=== PATIENT | female | born 1995 | race African-American/Black ===

== ENCOUNTER 2025-01-24 10:43 | Outpatient (REF) | payer MEDICAID, SELFPAY ==
[2025-01-24 11:51] LABS: Estimated Average Glucose 105 mg/dL; Hemoglobin A1c % 5.3 % (<6.0)
--- OUTSIDE RECORDS SUMMARY | 2025-01-24 11:51 | XMS_ITS | Encounter Summary ---
Author Organization [employer] Address [address] [facility] [address] [place] [address] Care Team Providers Care Paralegal Legal Secretary Name Role Phone Bria Mehta [facility] Primary Care Provider [phone] Reason for Visit * Reason Comments transfer of care Encounter Details Date Type Department Care Team (Late st Contact Info) Description 01/24/2025 9:15 AM EDT Office Visit [facility] [address], [place] [phone] Bria Mehta [facility] [address] [place], [place] [phone] Patient desires (Primary Dx); Class 1 obesity due to excess calories with body mass index (BMI) of 34.0 to 34.9 in adult, unspecified whether serious comorbidity present; Healthcare maintenance Social History Tobacco Use Types Packs/Day Years Used Date Smoking Tobacco: Former Cigarettes 1 13.4 S tarted: 2012 Smokeless Tobacco: Never Alcohol Use Standard Drinks/Week Comments Never 0 (1 standard drink = 0.6 oz pur e alcohol) Depression Answer Date Recorded Patient Health Questionnaire-9 Score 0 01/24/2025 Patient Health Questionnaire-9 Score 0 01/24/2025 Last PHQ-9: Questionnaire Data Not on file 0 01/24/2025 Housing Stability Answer Date Recorded What is your housing situation today? I have mendoza santizo 12/28/[address] you li ve. Do you have problems with any of the following? None of the above 12/28/2024 Food Insecurity Answer Date Recorded Within the past 12 months, y ou worried that your food would run out before you got money to buy more: Never True 12/28/2024 Within the past 12 months,th e food you bought just didn't last and you didn't have enough money to get more: Never True 01/2025 Transportation Answer Date Recorded In the past 12 months, has l ack of transportation kept you from medical appts, meetings, work or from getting things needed for daily living? No 12/28/2024 Utilities Answer Date Recorded In the past 12 months, has t he electric, gas, oil or water company threatened to shut off services in your home? No 12/28/2024 Depression Answer Date Recorded Patient Health Questionnaire-2 Score 0 01/24/2025 Internet Access Answer Date Recorded Internet Access Q1 Yes 12/28/2024 Internet Access Q2 Not on file 12/28/2024 Comments No Sex and Gender Information Value Date Recorded Sex Assigned at Female 12/20/2024 9:34 AM EDT Legal Sex Female 2:03 PM EDT Gender Identity Female 12/27/2024 11:54 AM EDT Sexual Orientation Don't know 12/27/2024 11 :54 AM EDT documented as of this encounter Last Filed Vital Signs Vital Sign Reading Time Taken Comments Blood Pressure 108/78 01/24/2025 9:21 AM EDT Pulse 88 01/24/2025 9:21 AM EDT Temperature 36.8 ??C (98.2 ??F) 01/24/2025 9:21 AM ED T Respiratory Rate 20 01/24/2025 9:21 AM EDT Oxygen Saturation - - Inhaled Oxygen Concentration - - Weight 99.8 kg (220 lb) 01/24/2025 9:21 AM EDT Height 170.2 cm (5' 7 ) 01/24/2025 9:21 AM EDT Body Mass Index 34.46 01/24/2025 9:21 AM EDT documented in this encounter Functional Status * Over the past 2 weeks, how often have you been bothered by any of the following problems? Question Answer Date of Assessment Author Patient Health Questionnaire-2 Score 0 01/24/2025 9:23 AM EDT Dayanna Turner MA * Little interest or pleasure in doing things Answer Date of Assessment Author Not at all 01/24/2025 9:23 AM EDT Dayanna De La Garza MA * Feeling down, depressed, or hopeless Answer Date of Assessment Author Not at all 01/24/2025 9:23 AM EDT Dayanna De La Garza MA * Trouble falling or staying asleep, or sleeping too much Answer Date of Assessment Author Not at all 01/24/2025 9:23 AM Dayanna Lopez MA * Feeling tired or having little energy Answer Date of Assessment Author Not at all 01/24/2025 9:23 AM Dayanna Lopez MA * Poor appetite or overeating Answer Date of Assessment Author Not at all 01/24/2025 9:23 AM Dayanna Lopez MA * Feeling bad about yourself - or that you are a failure or have let yourself or your family down Answer Date of Assessment Author Not at all 01/24/2025 9:23 AM Dayanna Lopez MA * Trouble concentrating on things, such as reading the newspaper or watching television Answer Date of Assessment Author Not at all 01/24/2025 9:23 AM Dayanna Lopez MA * Moving or speaking so slowly that other people could have noticed? Or the opposite - being so fidgety or restless that you have been moving around a lot more than usual. Answer Date of Assessment Author Not at all 01/24/2025 9:23 AM Dayanna Lopez MA * Thoughts that you would be better off or hurting yourself in some way Answer Date of Assessment Author Not at all 01/24/2025 9:23 AM Dayanna Lopez MA * Patient Health Questionnaire-9 Score Answer Date of Assessment Author 0 01/24/2025 9:23 AM Dayanna Lopez MA * Over the last 2 weeks, how often have you been bothered by any of the following problems? Question Answer Date of Assessment Author Feeling nervous, anxious, or on edge 0 01/24/2025 9:23 AM Dayanna Greenberg MA Not being able to stop or control worrying 0 01/24/2025 9:23 AM Dayanna Greenberg MA Worrying too much about different things 0 01/24/2025 9:23 AM Dayanna Greenberg MA Trouble relaxing 0 01/24/2025 9:23 AM EDT Dayanna Burdick MA Being so restless that it is hard to sit still 0 01/24/2025 9:23 AM EDT Dayanna Turner MA Becoming easily annoyed or irritable 0 01/24/2025 9:23 AM EDT Dayanna Turner MA Feeling afraid as if something awful might happen 0 01/24/2025 9:23 AM EDT Dayanna Verduzco MA MEREDITH-7 Total Score 0 01/24/2025 9:23 AM EDT Dayanna Turner MA documented as of this encounter Plan of Treatment Upcoming Encounters Date Type Department Care Team (Late st Contact Info) Description 03/21/2025 2:30 PM EDT Office Visit [facility] [address] [place] [address] [facility] [address] [place] [address] Scheduled Orders Name Type Priority Associated Diagnoses Orde r Schedule Hemoglobin A1c Lab Routine Class 1 obesity due to excess calories with body mass index (BMI) of 34.0 to 34.9 in adult, unspecified whether serious comorbidity present Expected: 01/24/2025 (Approximate), Expires: 01/24/2026 Hepatitis C Antibody with Reflex to HCV, RNA, Quantitative, Real-Time PCR Lab Routine Healthcare maintenance Expected: 01/24/2025 (Approximate), Expires: 01/24/2026 HIV-1/2 Antigen and Antibodies, Fourth Generation, with Reflexes Lab Routine Healthcare maintenance Expected: 01/24/2025 (Approximate), Expires: 01/24/2026 Lipid Panel, Standard Lab Routine Class 1 obesity due to excess calories with body mass index (BMI) of 34.0 to 34.9 in adult, unspecified whether serious comorbidity present Expected: 01/24/2025 (Approximate), Expires: 01/24/2026 Comprehensive Metabolic Panel Lab Routine Class 1 obesity due to excess calories with body mass index (BMI) of 34.0 to 34.9 in adult, unspecified whether serious comorbidity present Expected: 01/24/2025 (Approximate), Expires: 01/24/2026 TSH W/Reflex to FT4 Lab Routine Class 1 obesity due to excess calories with body mass index (BMI) of 34.0 to 34.9 in adult, unspecified whether serious comorbidity present Expected: 01/24/2025 (Approximate), Expires: 01/24/2026 Syphilis Screen Lab Routine Healthcare maintenance Expected: 01/24/2025, Expires: 01/24/2026 documented as of this encounter Visit Diagnoses Diagnosis Patient desires - Primary Class 1 obesity due to excess calories with body mass index (BMI) of 34.0 to 34.9 in adult, unspecified whether serious comorbidity present Healthcare maintenance documented in this encounter Additional Health Concerns Assessment Noted Time PHQ-9 Depression Total Score: 0 01/25/20 9:23 AM EDT documented as of this encounter Care Teams Paralegal Legal Secretary Relationship Specialty Start Date End Date Bria Mehta FNP [address] [place] [id number] PCP - General Family Medicine 12/28/24 documented as of this encounter
[2025-01-24 12:34] LABS: Alanine Aminotransferase 19 U/L (0-31); Albumin Level 4.5 g/dL (3.5-5.0); Alkaline Phosphatase 87 U/L (39-117); Anion Gap 11 (12-20); Aspartate Amino Transferase 20 U/L (5-31); Bilirubin Total 0.2 mg/dL (0.0-1.0); Blood Urea Nitrogen 15 mg/dL (9-16); Calcium 9.2 mg/dL (8.4-10.2); Carbon Dioxide 23 mmol/L (22-29); Chloride 111 mmol/L (96-108); Cholesterol 246 mg/dL (<200); Estimated Glomerular Filt Rate > 60; Glucose Random 94 mg/dL (60-115); HDL Cholesterol 48 mg/dL (>40); LDL Cholesterol Calculated 173 mg/dL (<100); Potassium 3.9 mmol/L (3.3-5.1); Sodium 141 mmol/L (135-145); TSH reflex Free T4 1.01 uIU/mL (0.32-4.0); Total Protein 7.2 g/dL (6.5-8.0); Triglycerides 129 mg/dL (<150)
[2025-01-24 12:36] LABS: HIV AB/AG Nonreactive (Nonreactive); HIV Num 1 0.08 S/CO (0.00-0.99); ~HepC Num1 0.12 S/CO (0.00-0.79); ~Hepatitis C Antibody Nonreactive (Nonreactive)
[2025-01-24 12:37] LABS: Syphilis Screen Nonreactive (Nonreactive)
== END 2025-01-24 10:44 | disposition home or self-care (01) ==
LOC: HO.HHCL 10:43
PROVIDERS: Visit Provider Registered Nurse
DX: Z00.00 Encounter for general adult medical examination without abnormal findings (principal); E66.811 Obesity, class 1; E66.09 Other obesity due to excess calories; Z68.34 Body mass index [BMI] 34.0-34.9, adult
CPT/HCPCS: 36415; 80053; 80061; 83036; 84443; 86780; 86803; 87389